=== PATIENT | female | born 2000 | race Caucasian/White ===

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

== ENCOUNTER 2019-01-04 19:47 | Emergency (ER) | payer BC ==
[2019-01-04 20:54] LABS: Hematocrit 34 % (35-47); Hemoglobin 10.7 g/dL (12.0-16.0); Mean Corpuscular HGB Conc 32 g/dL (31-36); Mean Corpuscular Hemoglobin 23 pg (27-31); Mean Corpuscular Volume 71 fL (80-97); Mean Platelet Volume 7.9 fL (7.4-10.4); Platelet Count 400 10^3/uL (150-450); Red Blood Count 4.75 10^6 /uL (3.70-4.87); Red Cell Distribution Width 16 % (10.5-15); White Blood Count 9.5 10^3/uL (3.5-10.8)
[2019-01-04 20:58] LABS: ABS Basophils 0.1 10^3/ul (0-0.2); ABS Eosinophils 0.2 10^3/ul (0-0.6); ABS Monocytes 0.6 10^3/ul (0-0.8); ABS Neutrophils 6.6 10^3/ul (1.5-7.7); Lymphocyte % 21.1 %
[2019-01-04 21:06] LABS: ALT 21 U/L (7-52); AST 17 U/L (13-39); Albumin 4.2 g/dL (3.2-5.2); Albumin/Globulin Ratio 1.2 (1-3); Alkaline Phosphatase 124 U/L (34-104); Anion Gap 7 mmol/L (2-11); BUN/Creatinine Ratio 20.4 (8-20); Blood Urea Nitrogen 11 mg/dL (6-24); C Reactive Protein 4.34 mg/L (<8.01); CO2 Carbon Dioxide 26 mmol/L (22-32); Chloride 104 mmol/L (101-111); EGFR Non-African American 145.4 (>60); Globulin 3.6 g/dL (2-4); Glucose 109 mg/dL (70-100); HCG Pregnancy < 0.60 mIU/mL; Potassium 3.9 mmol/L (3.5-5.0); Sodium 137 mmol/L (135-145); Total Protein 7.8 g/dL (6.4-8.9)
--- NOTE | 2019-01-04 21:56 | ED ---
Complex/Multi-Sys Presentation - HPI Summary HPI Summary: Patient complains of intermittent blurred vision in left eye, nausea, increased urinary frequency, and white vaginal discharge 3 days. History of stillbirth September 16 from gestational diabetes. Also complains she is 21 over days due for her menstrual cycle. Denies fever, cough, sore throat, CP, SOB, V/D, abdominal pain, change in urine, change in BM, vaginal symptoms. Medical history is none. - History Of Current Complaint Chief Complaint: EDNauseaVomitDiarrh Time Seen by Provider: 01/04/19 20:20 Hx Obtained From: Patient Onset/Duration: Gradual Onset, Lasting Days Timing: Intermittent, Lasting: Severity Currently: Mild Severity Initially: Mild Associated Signs And Symptoms: Positive: Nausea - Allergies/Home Medications Allergies/Adverse Reactions: Allergies Allergy/AdvReac Type Severity Reaction Status Date / Time No Known Allergies Allergy Verified 01/04/19 19:54 PMH/Surg Hx/FS Hx/Imm Hx Endocrine/Hematology History: Denies: Hx Diabetes Cardiovascular History: Denies: Hx Hypertension Respiratory History: Denies: Hx Asthma History: Denies: Hx Dialysis Sensory History: Denies: Hx Contacts or Glasses Opthamlomology History: Denies: Hx Contacts or Glasses EENT History: Denies: Hx Deafness Neurological History: Denies: Hx Dementia Psychiatric History: Denies: Hx Autism - Surgical History Surgery Procedure, Year, and Place: Infectious Disease History: No Infectious Disease History: Denies: Traveled Outside the [place] in Last 30 Days - Family History Known Family History: Positive: Cardiac Disease, Diabetes, Other - Stroke Family History: Pt denies any relevant family history. - Social History Alcohol Use: None Hx Substance Use: No Substance Use Type: Reports: None Hx Tobacco Use: No Smoking Status (MU): Never Smoked Tobacco Review of Systems Constitutional: Negative Positive: Blurred Vision ENT: Negative Cardiovascular: Negative Respiratory: Negative Positive: Nausea Positive: frequency Musculoskeletal: Negative Skin: Negative Neurological: Negative Psychological: Normal All Other Systems Reviewed And Are Negative: Yes Physical Exam - Summary Physical Exam Summary: Abdomen soft nontender. Lung sounds clear to auscultation bilaterally. Neuro exam normal. Triage Information Reviewed: Yes Vital Signs On Initial Exam: Initial Vitals Temp Pulse Resp BP Pulse Ox 99.5 F 95 16 148/77 97 01/04/19 19:53 01/04/19 19:53 01/04/19 19:53 01/04/19 19:53 01/04/19 19:53 Vital Signs Reviewed: Yes Appearance: Positive: Well-Appearing Skin: Positive: Warm Head/Face: Positive: Normal Head/Face Inspection Eyes: Positive: Normal ENT: Positive: Normal ENT inspection Neck: Positive: Supple Respiratory/Lung Sounds: Positive: Clear to Auscultation Cardiovascular: Positive: Normal Abdomen Description: Positive: Nontender Musculoskeletal: Positive: Normal Neurological: Positive: Normal Psychiatric: Positive: Normal AVPU Assessment: Alert - [place] Coma Scale Best Eye Response: 4 - Spontaneous Best Motor Response: 6 - Obeys Commands Best Verbal Response: 5 - Oriented Coma Scale Total: 15 Diagnostics - Vital Signs Vital Signs Temp Pulse Resp BP Pulse Ox 01/04/19 21:00 83 98 01/04/19 20:24 95 97 01/04/19 20:22 100 135/89 98 01/04/19 19:53 99.5 F 95 16 148/77 97 - Laboratory Lab Results: Lab Results 01/04/19 01/04/19 Range/Units 20:33 20:34 WBC 9.5 (3.5-10.8) 10^3/uL RBC 4.75 (3.70-4.87) 10^6 /uL Hgb 10.7 L (12.0-16.0) g/dL Hct 34 L (35-47) % MCV 71 L (80-97) fL MCH 23 L (27-31) pg MCHC 32 (31-36) g/dL RDW 16 H (10.5-15) % Plt Count 400 (150-450) 10^3/uL MPV 7.9 (7.4-10.4) fL Neut % (Auto) 69.9 % Lymph % (Auto) 21.1 % [place] % (Auto) 6.4 % Eos % (Auto) 2.0 % Baso % (Auto) 0.6 % Absolute Neuts (auto) 6.6 (1.5-7.7) 10^3/ul Absolute Lymphs (auto) 2.0 (1.0-4.8) 10^3/ul Absolute Monos (auto) 0.6 (0-0.8) 10^3/ul Absolute Eos (auto) 0.2 (0-0.6) 10^3/ul Absolute Basos (auto) 0.1 (0-0.2) 10^3/ul Absolute Nucleated RBC 0.0 10^3/ul Nucleated RBC % 0.0 Sodium 137 (135-145) mmol/L Potassium 3.9 (3.5-5.0) mmol/L Chloride 104 (101-111) mmol/L Carbon Dioxide 26 (22-32) mmol/L Anion Gap 7 (2-11) mmol/L BUN 11 (6-24) mg/dL Creatinine 0.54 (0.51-0.95) mg/dL Est GFR ( Amer) 176.0 (>60) Est GFR (Non-Af Amer) 145.4 (>60) BUN/Creatinine Ratio 20.4 H (8-20) Glucose 109 H (70-100) mg/dL Calcium 10.0 (8.6-10.3) mg/dL Total Bilirubin 0.50 (0.2-1.0) mg/dL AST 17 (13-39) U/L ALT 21 (7-52) U/L Alkaline Phosphatase 124 H (34-104) U/L C-Reactive Protein 4.34 (<8.01) mg/L Total Protein 7.8 (6.4-8.9) g/dL Albumin 4.2 (3.2-5.2) g/dL Globulin 3.6 (2-4) g/dL Albumin/Globulin Ratio 1.2 (1-3) Beta HCG, Quant < 0.60 mIU/mL Result Diagrams: 01/04/19 20:34 01/04/19 20:33 Lab Statement: Any lab studies that have been ordered have been reviewed, and results considered in the medical decision making process. Complex Multi-Symp Course/Dx Course Of Treatment: Patient complains of intermittent blurred vision in left eye, nausea, increased urinary frequency, and white vaginal discharge 3 days. History of stillbirth September 16 from gestational diabetes. Also complains she is 21 over days due for her menstrual cycle. Denies fever, cough, sore throat, CP, SOB, V/D, abdominal pain, change in urine, change in BM, vaginal symptoms. Medical history is none. Physical exam:Abdomen soft nontender. Lung sounds clear to auscultation bilaterally. Neuro exam normal. Vital signs within normal limits. Hemoglobin 10.7. History of anemia. Labs otherwise unremarkable. UA negative. HCG negative for at 0.6, HCG 7.5 on . Patient is 21 days late for her menstrual cycle. Possible completed miscarriage. Recommend follow-up with [facility]. Recommend follow-up with Ophthalmology for intermittent blurred vision of left eye. - Diagnoses Provider Diagnoses: Blurred vision, left eye, Nausea Discharge - Sign-Out/Discharge Documenting (check all that apply): Patient Departure Patient Received Moderate/Deep Sedation with Procedure: No - Discharge Plan Condition: Stable Disposition: HOME Patient Education Materials: Blurred Vision (ED) Referrals: Elpidio ERICKSON,Sidney Agudelo [Primary Care Provider] - Renard Pérez MD [Medical Doctor] - Additional Instructions: Follow-up with ophthalmology Dr. Pérez for further evaluation of blurred vision in left eye. Take Phenergan as directed for nausea. Follow up with [facility] Dr. Robles for further evaluation of delayed menstrual cycle. Return to the ED for any new or worsening symptoms. - Billing Disposition and Condition Condition: STABLE Disposition: Home
[2019-01-04 22:35] LABS: Urine Appearance Cloudy; Urine Bilirubin Negative (Negative); Urine Blood Negative (Negative); Urine Color Yellow; Urine Glucose Negative (Negative); Urine Ketones Negative (Negative); Urine Nitrite Negative (Negative); Urine Protein Negative (Negative); Urine Specific Gravity 1.017 (1.010-1.030); Urine Urobilinogen Negative (Negative)
[2019-01-04 23:39] VITALS: BP 147/84
== END 2019-01-04 23:25 | disposition home or self-care (01) ==
LOC: ED 19:47
DX: H53.8 Other visual disturbances (principal); R11.0 Nausea
CPT/HCPCS: 36415; 80053; 81003; 84702; 85025; 86140; 99282

== ENCOUNTER 2019-05-19 13:50 | Emergency (ER) | payer BC ==
[2019-05-19 14:52] LABS: ABS Eosinophils 0.1 10^3/ul (0-0.6); ABS Lymphocytes 1.5 10^3/ul (1.0-4.8); ABS Monocytes 0.4 10^3/ul (0-0.8); Eosinophil % 1.9 %; Hematocrit 36 % (35-47); Hemoglobin 11.7 g/dL (12.0-16.0); Mean Corpuscular HGB Conc 32 g/dL (31-36); Mean Corpuscular Hemoglobin 23 pg (27-31); Mean Corpuscular Volume 71 fL (80-97); Mean Platelet Volume 8.3 fL (7.4-10.4); Platelet Count 346 10^3/uL (150-450); Red Blood Count 5.09 10^6 /uL (3.70-4.87); Red Cell Distribution Width 18 % (10-15)
--- NOTE | 2019-05-19 16:32 | ED ---
- HPI Summary HPI Summary: Pt is a 19 y/o F presenting to the ED for a chief complaint of OB problems. Pt was previously at [facility] where she had 2 ultrasounds with no remarkable findings, but she had a positive urine test. Pt has had 7 tests with positive results. Pt is concerned about an ectopic . Pt denies pelvic pain or vomiting, but admits nausea in the morning. Pts LNMP was 04/07/19. This is would be her second . Pts first resulted in a still at 37 weeks on 09/16/18. Pt was previously seen 2 weeks before the stillbirth and she is very tearful about it. Pt denies tobacco or alcohol use. Pt has an appointment with Dr. Nichols this month. Pt cried during the visit. - History of Current Complaint Chief Complaint: EDOBProblems Stated Complaint: POSS ECTOPIC PER PT Time Seen by Provider: 05/19/19 16:05 Hx Obtained From: Patient Chief Complaint: Concern for Demise Onset/Duration: Started Hours Ago, Atraumatic, Still Present Severity: Mild Current Severity: Mild Pain Intensity: 0 Location of Pain: None Character: None Aggravating Factors: Nothing Alleviating Factors: Nothing Associated Signs and Symptoms: Positive: Nausea, Other: - Negative pelvic pain. Negative: Vomiting - Assessment Hx Now: Yes SAB: 0 IEA: 0 - Additional Pertinent History Maternal Blood Type and Rh: A Positive - Allergies/Home Medications Allergies/Adverse Reactions: Allergies Allergy/AdvReac Type Severity Reaction Status Date / Time No Known Allergies Allergy Verified 01/04/19 19:54 PMH/Surg Hx/FS Hx/Imm Hx Previously Healthy: Yes Endocrine/Hematology History: Denies: Hx Diabetes Cardiovascular History: Denies: Hx Hypertension Respiratory History: Denies: Hx Asthma History: Denies: Hx Dialysis Sensory History: Denies: Hx Contacts or Glasses, Hx Deafness Opthamlomology History: Denies: Hx Contacts or Glasses Neurological History: Denies: Hx Dementia Psychiatric History: Denies: Hx Autism - Surgical History Surgical History: Yes Surgery Procedure, Year, and Place: Infectious Disease History: No Infectious Disease History: Denies: Traveled Outside the [place] in Last 30 Days - Family History Known Family History: Positive: Cardiac Disease, Diabetes, Other - Stroke Family History: Pt denies any relevant family history. - Social History Alcohol Use: None Hx Substance Use: No Substance Use Type: Reports: None Hx Tobacco Use: No Smoking Status (MU): Never Smoked Tobacco Review of Systems Positive: Nausea - In the morning. Negative: Abdominal Pain - Pelvic, Vomiting Negative: pain - Pelvic All Other Systems Reviewed And Are Negative: Yes Physical Exam - Summary Physical Exam Summary: Constitutional: Well-developed, Well-nourished, Alert. (-) Distressed Skin: Warm, Dry HENT: Normocephalic; Atraumatic Eyes: Conjunctiva normal Neck: Musculoskeletal ROM normal neck. (-) JVD, (-) Stridor, (-) Nuchal rigidity Cardio: Rhythm regular, rate normal, Heart sounds normal; Intact distal pulses; Radial pulses are 2+ and symmetric. (-) Murmur Pulmonary/Chest wall: Effort normal. (-) Respiratory distress, (-) Wheezes, (-) Rales Abd: Soft, (-) tenderness, (-) Distension, (-) Guarding, (-) Rebound Musculoskeletal: (-) Edema Lymph: (-) Cervical adenopathy Neuro: Alert, Oriented x3 Psych: Tearful - Physical Exam Triage Information Reviewed: Yes Vital Signs Reviewed: Yes Procedures - Sedation Patient Received Moderate/Deep Sedation with Procedure: No Diagnostics - Vital Signs Vital Signs Temp Pulse Resp BP Pulse Ox 05/19/19 15:47 98.6 F 78 18 155/97 98 05/19/19 13:52 97.8 F 98 18 131/98 97 - Laboratory Lab Results: Lab Results 05/19/19 05/19/19 Range/Units 14:26 14:27 WBC 7.0 (3.5-10.8) 10^3/uL RBC 5.09 H (3.70-4.87) 10^6 /uL Hgb 11.7 L (12.0-16.0) g/dL Hct 36 (35-47) % MCV 71 L (80-97) fL MCH 23 L (27-31) pg MCHC 32 (31-36) g/dL RDW 18 H (10-15) % Plt Count 346 (150-450) 10^3/uL MPV 8.3 (7.4-10.4) fL Neut % (Auto) 70.9 % Lymph % (Auto) 21.0 % [place] % (Auto) 5.7 % Eos % (Auto) 1.9 % Baso % (Auto) 0.5 % Absolute Neuts (auto) 5.0 (1.5-7.7) 10^3/ul Absolute Lymphs (auto) 1.5 (1.0-4.8) 10^3/ul Absolute Monos (auto) 0.4 (0-0.8) 10^3/ul Absolute Eos (auto) 0.1 (0-0.6) 10^3/ul Absolute Basos (auto) 0.0 (0-0.2) 10^3/ul Absolute Nucleated RBC 0.0 10^3/ul Nucleated RBC % 0.0 Beta HCG, Quant 620.92 mIU/mL Result Diagrams: 05/19/19 14:27 Lab Statement: Any lab studies that have been ordered have been reviewed, and results considered in the medical decision making process. - Ultrasound Transvaginal US Ultrasound Interpretation Completed By: Radiologist Summary of Ultrasound Findings: Transvaginal US IMPRESSION: #. No definitive intrauterine gestational sac visualized. While no suspicious extraovarian. adnexal region lesion is identified ectopic is not excluded in setting of. positive test without documented IUP. The differential includes early IUP and. missed . Correlate with clinical assessment and quantitative beta hCG. Reviewed by ED physician. Course/Dx - Course Course Of Treatment: 19 y/ Female presents with positive test. Beta hCG is 620, explained that this is in the discriminatory zone, therefore we are unable to localize on transvaginal ultrasound. Explained that this could be ectopic or a normal IUP, however since she is so early in her , we are unable to verify location. Patient states she has an OB appointment on 05/[address] Nichols,therefore she'll follow-up with him. Advised to return for pelvic pain, vaginal bleeding, or if she is concerned. - Diagnoses Provider Diagnoses: Positive test Discharge ED - Sign-Out/Discharge Documenting (check all that apply): Patient Departure - Discharge - Discharge Plan Condition: Stable Disposition: HOME Prescriptions: Pnv No.103/Folic/Om3s/Fish Oil [ Gummies] 1 each PO DAILY 30 Days #30 tab.chew Patient Education Materials: (ED) Referrals: Elpidio ERIKCSON,Sidney Agudelo [Primary Care Provider] - Additional Instructions: You were seen in the emergency department for + status. Your beta hCG level is 620. Your transvaginal ultrasound did not show an intrauterine or ectopic . Because your beta hCG level was so low (under something called the discriminatory zone), we are unable to rule out ectopic . Please return to emergency department if you have abdominal pain, vaginal bleeding, or if you are concerned. Please call your [facility] to schedule follow-up. If any studies were not completed at the time of discharge you will be called with the relevant results. Please follow up with your primary care doctor in next 2-3 days and return to emergency department for worsening or concerning symptoms. It was a pleasure taking care of you today. - Billing Disposition and Condition Condition: STABLE Disposition: Home - Attestation Statements Document Initiated by Lois: Yes Documenting Scribe: Maddie Ledbetter Provider For Whom Lois is Documenting (Include Credential): Bria Mace MD. Scribe Attestation: I, Maddie Ledbetter, scribed for Bria Mace MD. on 05/19/19 at 1711. Scribe Documentation Reviewed: Yes Provider Attestation: The documentation as recorded by the Maddie mendieta accurately reflects the service I personally performed and the decisions made by me, Bria Mace MD. Status of Scribe Document: Viewed
[2019-05-19 16:51] VITALS: BP 139/82
== END 2019-05-19 16:45 | disposition home or self-care (01) ==
LOC: ED 13:50
DX: Z32.01 Encounter for pregnancy test, result positive (principal); R11.0 Nausea
CPT/HCPCS: 36415; 76817; 84702; 85025; 99282